=== PATIENT | female | born 1945 | race Caucasian/White ===

== ENCOUNTER 2023-03-08 14:28 | Inpatient (IN) | payer MEDICAID, OTHER ==
[~2023-03-08] VITALS: Ht 167.6 cm; Wt 67.1 kg
[2023-03-08 15:19] LABS: BASOPHILS # (AUTO) 0.2 K/uL (0.0-0.2); BASOPHILS % (AUTO) 1.3 % (0.0-2.0); EOSINOPHILS % (AUTO) 0.2 % (0.0-6.0); HEMATOCRIT 40 % (33-45); HEMOGLOBIN 13.2 g/dL (11.5-14.8); LYMPHOCYTES # (AUTO) 0.7 K/uL (0.8-4.8); LYMPHOCYTES % (AUTO) 5.4 % (20.0-44.0); MEAN CORPUSCULAR HEMOGLOBIN 29 PG (26.0-33.0); MEAN CORPUSCULAR HGB CONC 33 g/dl (31.0-36.0); MEAN CORPUSCULAR VOLUME 86 fL (82-100); MONOCYTES # (AUTO) 0.9 K/uL (0.1-1.30); MONOCYTES % (AUTO) 7.3 % (2.0-12.0); NEUTROPHILS # (AUTO) 10.9 K/uL (1.8-8.9); NEUTROPHILS % (AUTO) 85.8 % (43.0-81.0); PLATELET COUNT (AUTO) 187 K/uL (150-450); RED BLOOD CELL COUNT(AUTO) 4.63 MIL/uL (4.0-5.2); RED CELL DISTRIBUTION WIDTH 13.9 % (11.5-15.0); WHITE BLOOD COUNT (AUTO) 12.7 K/uL (4.3-11.0)
[2023-03-08 15:28] LABS: PARTIAL THROMBOPLASTIN TIME 26.9 SEC (24.3-34.3); PROTHROMBIN TIME 10.6 SECS (9.2-11.1)
[2023-03-08 15:42] LABS: ALANINE AMINOTRANSFERASE 17 U/L (12-78); ALBUMIN 3.2 g/dL (3.4-5.0); ALKALINE PHOSPHATASE 152 U/L (46-116); ASPARTATE AMINOTRANSFERASE 11 U/L (15-37); BILIRUBIN,DIRECT 0.1 mg/dL (0.0-0.2); BILIRUBIN,TOTAL 0.5 mg/dL (0.2-1.0); CALCIUM, SERUM 9.1 mg/dL (8.5-10.1); CARBON DIOXIDE 26 mmol/L (21-32); CHLORIDE 98 mmol/L (98-107); CREATININE 1.2 mg/dL (0.6-1.3); GLUCOSE 232 mg/dL (74-106); SODIUM SERUM 134 mmol/L (136-145); TOTAL PROTEIN, SERUM 7.5 g/dL (6.4-8.2); UREA NITROGEN, BLOOD 18 mg/dL (7-18)
[2023-03-08 15:49] LABS: THYROID STIMULATING HORMONE 0.794 uIU/mL (0.358-3.74)
[2023-03-08] MEDS ORDERED: DONE5TAB34 PO (16:11)
[2023-03-08] MEDS ORDERED: DULA0.75 SQ (16:11)
[2023-03-08] MEDS ORDERED: PRAV20TA4 PO (16:11)
[2023-03-08] MEDS ORDERED: CALC1TAB30 PO (16:11)
[2023-03-08] MEDS ORDERED: HYDR12.55 PO (16:11)
[2023-03-08] MEDS ORDERED: VITA1TAB56 PO (16:11)
[2023-03-08] MEDS ORDERED: METF-440 PO (16:11)
[2023-03-08] MEDS ORDERED: FAMO20TA8 PO (16:11)
[2023-03-08] MEDS ORDERED: ASCO-352 PO (16:11)
[2023-03-08] MEDS ORDERED: OMEP40CA21 PO (16:11)
[2023-03-08] MEDS ORDERED: ACET-868 PO (16:11)
[2023-03-08] MEDS ORDERED: DOCU-141 PO (16:11)
[2023-03-08] MEDS ORDERED: LOSA50TA39 PO (16:11)
[2023-03-08] MEDS ORDERED: GLIM2TAB31 PO (16:11)
[2023-03-08] MEDS ORDERED: ONDA4TAB5 PO (16:11)
[2023-03-08] MEDS ORDERED: FERR325T23 PO (16:11)
[2023-03-08 16:57] LABS: ANISOCYTOSIS 1+; LYMPHOCYTES % (MANUAL) 8 % (16-48); MONOCYTES % (MANUAL) 6 % (0-11.0); NEUTROPHILS % (MANUAL) 85 (42-76); PLATELET ESTIMATE ADEQUATE; REACTIVE LYMPHOCYTES 1 % (0-0)
[2023-03-08] MEDS ORDERED: MAG HYDROX/AL HYDROX/SIMETH 30 ML UDC PO PRN (18:00)
[2023-03-08] MEDS ORDERED: MAGNESIUM HYDROXIDE 30 ML UDC PO PRN (18:00)
[2023-03-08] MEDS ORDERED: ONDANSETRON HCL/PF 4 MG/2 ML VIAL IVP PRN (18:00)
[2023-03-08] MEDS ORDERED: Z GUARD REMEDY 4 OZ OINT TP PRN (18:00)
[2023-03-08] MEDS ORDERED: ZOLPIDEM TARTRATE 5 MG TABLET PO PRN (18:00)
[2023-03-08] MEDS ORDERED: ACETAMINOPHEN 325 MG TABLET ONE (19:13)
[2023-03-08] MEDS: ACETAMINOPHEN 325 MG TABLET PO PRN (19:14)
[2023-03-08 19:46] VITALS: BP 131/56; TEMP 98.6; O2SAT 98
[2023-03-09] VITALS: BP 137/55; TEMP 98.1; O2SAT 99
[2023-03-09 04:00] VITALS: BP 135/51; TEMP 98.1; O2SAT 100
[2023-03-09 05:45] LABS: APPEARANCE,URINE SLIGHTLY CLOUDY (CLEAR); BILIRUBIN,URINE NEGATIVE (NEGATIVE); BLOOD, URINE 1+ Ery/uL (NEGATIVE); COLOR,URINE YELLOW (YELLOW); KETONES,URINE NEGATIVE (NEGATIVE); LEUKOCYTE ESTERASE ,URINE 2+ (NEGATIVE); NITRITE, URINE NEGATIVE (NEGATIVE); PROTEIN,URINE 1+ mg/dl (NEGATIVE); UGLUCOSE NEGATIVE (NEGATIVE); UROBILINOGEN,URINE 0.2 EU/dL (0.2)
[2023-03-09 06:05] LABS: AMPHETAMINE, URINE NEGATIVE (NEGATIVE); BARBITURATE, URINE NEGATIVE (NEGATIVE); BENZODIAZEPINE, URINE NEGATIVE (NEGATIVE); CANNABINOID, URINE NEGATIVE (NEGATIVE); COCCAINE, URINE NEGATIVE (NEGATIVE); PHENCYCLIDINE SCREEN,URINE NEGATIVE (NEGATIVE)
[2023-03-09 06:09] LABS: OPIATE, URINE POSITIVE (NEGATIVE)
[2023-03-09 06:23] LABS: ADD URINE CULTURE YES; BACTERIA,URINE 4+ /HPF (None Seen); MUCUS,URINE Moderate /LPF (None Seen); WBC,URINE 21-50 /HPF (0-3)
[2023-03-09 06:24] LABS: BASOPHILS % (AUTO) 0.2 % (0.0-2.0); HEMATOCRIT 38 % (33-45); HEMOGLOBIN 12.5 g/dL (11.5-14.8); LYMPHOCYTES # (AUTO) 1.7 K/uL (0.8-4.8); LYMPHOCYTES % (AUTO) 12.2 % (20.0-44.0); MEAN CORPUSCULAR HEMOGLOBIN 28 PG (26.0-33.0); MEAN CORPUSCULAR HGB CONC 33 g/dl (31.0-36.0); MEAN CORPUSCULAR VOLUME 86 fL (82-100); MONOCYTES # (AUTO) 1.2 K/uL (0.1-1.30); MONOCYTES % (AUTO) 8.7 % (2.0-12.0); NEUTROPHILS # (AUTO) 11.2 K/uL (1.8-8.9); NEUTROPHILS % (AUTO) 78.9 % (43.0-81.0); PLATELET COUNT (AUTO) 187 K/uL (150-450); RED BLOOD CELL COUNT(AUTO) 4.42 MIL/uL (4.0-5.2); WHITE BLOOD COUNT (AUTO) 14.2 K/uL (4.3-11.0)
[2023-03-09 06:29] LABS: CHOLESTEROL 184 mg/dL (<200); HDL CHOLESTEROL 67 mg/dL (40-60); LDL 102 mg/dL (0-99); TRIGLYCERIDES 85 mg/dL (30-150)
[2023-03-09 06:39] LABS: CALCIUM, SERUM 8.8 mg/dL (8.5-10.1); CARBON DIOXIDE 27 mmol/L (21-32); CHLORIDE 98 mmol/L (98-107); CREATININE 1.3 mg/dL (0.6-1.3); GLUCOSE 169 mg/dL (74-106); MAGNESIUM 1.7 mg/dL (1.8-2.4); PHOSPHORUS 3.6 mg/dL (2.5-4.9); POTASSIUM 3.8 mmol/L (3.5-5.1); SODIUM SERUM 133 mmol/L (136-145); UREA NITROGEN, BLOOD 18 mg/dL (7-18)
[2023-03-09] MEDS ORDERED: MAGNESIUM OXIDE 400 MG TABLET PO ONE (07:30)
[2023-03-09] MEDS ORDERED: DOCUSATE SODIUM 100 MG CAPSULE PO PRN (07:30)
[2023-03-09] MEDS ORDERED: Medication Not On Formulary EA (Dulaglutide (Trulicity) 0.75 MG) SQ SCH (07:30)
[2023-03-09 08:00] VITALS: BP 119/50; TEMP 98.6; O2SAT 100
[2023-03-09] MEDS: LOSARTAN POTASSIUM 50 MG TABLET PO SCH (08:31)
[2023-03-09] MEDS: PANTOPRAZOLE 40 MG VIAL IV SCH (08:32)
[2023-03-09] MEDS: ASCORBIC ACID 500 MG TABLET PO SCH (08:32)
[2023-03-09] MEDS: FERROUS SULFATE (325 MG) 325 MG/TAB TABLET PO SCH (08:32)
[2023-03-09] MEDS: VITAMIN B COMP W-C 1 TAB TABLET PO SCH (08:32)
[2023-03-09] MEDS ORDERED: HYDROCHLOROTHIAZIDE 25 MG TABLET PO SCH (09:00)
[2023-03-09] MEDS: CEFTRIAXONE 1 G in IV D5W 50 ML IV SCH (10:44)
[2023-03-09 12:00] VITALS: BP 100/44; TEMP 98.6; O2SAT 99
[2023-03-09 16:00] VITALS: BP 108/54; TEMP 99.5; O2SAT 100
[2023-03-09 20:00] VITALS: BP 112/45; TEMP 97.7; O2SAT 99
[2023-03-09] MEDS: ATORVASTATIN 10 MG TABLET PO SCH (21:21)
[2023-03-09] MEDS: DONEPEZIL 5 MG TABLET PO SCH (21:21)
[2023-03-10] VITALS: BP 123/56; TEMP 98.3; O2SAT 99
[2023-03-10 04:00] VITALS: BP 113/50; TEMP 98.1; O2SAT 98
[2023-03-10 07:15] LABS: CALCIUM, SERUM 8.6 mg/dL (8.5-10.1); CREATININE 1.3 mg/dL (0.6-1.3); MAGNESIUM 2.1 mg/dL (1.8-2.4); PHOSPHORUS 3.1 mg/dL (2.5-4.9); POTASSIUM 3.8 mmol/L (3.5-5.1)
[2023-03-10 07:22] LABS: THYROID STIMULATING HORMONE 0.911 uIU/mL (0.358-3.74); URIC ACID 5.5 mg/dL (2.6-7.2)
[2023-03-10 08:00] VITALS: BP 116/44; TEMP 98.3; O2SAT 96
[2023-03-10] MEDS: LOSARTAN POTASSIUM 50 MG TABLET PO SCH (08:30)
[2023-03-10] MEDS: ASCORBIC ACID 500 MG TABLET PO SCH (08:30)
[2023-03-10] MEDS: PANTOPRAZOLE 40 MG VIAL IV SCH (08:31)
[2023-03-10] MEDS: VITAMIN B COMP W-C 1 TAB TABLET PO SCH (08:31)
[2023-03-10] MEDS: ACETAMINOPHEN 325 MG TABLET PO PRN ×2 (08:31→21:29)
[2023-03-10] MEDS: FERROUS SULFATE (325 MG) 325 MG/TAB TABLET PO SCH (08:31)
[2023-03-10 09:01] LABS: BASOPHILS % (AUTO) 0.3 % (0.0-2.0); EOSINOPHILS # (AUTO) 0.1 K/uL (0.0-0.7); EOSINOPHILS % (AUTO) 1.1 % (0.0-6.0); HEMATOCRIT 35 % (33-45); HEMOGLOBIN 11.6 g/dL (11.5-14.8); LYMPHOCYTES # (AUTO) 1.9 K/uL (0.8-4.8); LYMPHOCYTES % (AUTO) 18.3 % (20.0-44.0); MEAN CORPUSCULAR HEMOGLOBIN 28 PG (26.0-33.0); MEAN CORPUSCULAR HGB CONC 33 g/dl (31.0-36.0); MEAN CORPUSCULAR VOLUME 86 fL (82-100); MONOCYTES # (AUTO) 0.9 K/uL (0.1-1.30); MONOCYTES % (AUTO) 8.4 % (2.0-12.0); NEUTROPHILS # (AUTO) 7.4 K/uL (1.8-8.9); NEUTROPHILS % (AUTO) 71.9 % (43.0-81.0); PLATELET COUNT (AUTO) 210 K/uL (150-450); RED BLOOD CELL COUNT(AUTO) 4.09 MIL/uL (4.0-5.2); RED CELL DISTRIBUTION WIDTH 13.9 % (11.5-15.0); WHITE BLOOD COUNT (AUTO) 10.3 K/uL (4.3-11.0)
[2023-03-10] MEDS: CEFTRIAXONE 1 G in IV D5W 50 ML IV SCH (10:06)
[2023-03-10] MEDS ORDERED: DEXTROSE 50%-WATER 50 ML DISP.SYRIN IV PRN (15:30)
[2023-03-10 16:00] VITALS: BP 100/41; TEMP 98.2; O2SAT 99
[2023-03-10] MEDS: BLOOD SUGAR DIAGNOSTIC 1 EACH STRIP IN SCH ×2 (17:15→21:28)
[2023-03-10] MEDS: INSULIN REGULAR, HUMAN 100 UNIT/ML 3 ML VIAL SQ PRN ×2 (17:19→21:29)
[2023-03-10 20:00] VITALS: BP 134/49; TEMP 97.7; O2SAT 99
[2023-03-10] MEDS: DONEPEZIL 5 MG TABLET PO SCH (21:08)
[2023-03-10] MEDS: ATORVASTATIN 10 MG TABLET PO SCH (21:08)
[2023-03-11] MEDS: BLOOD SUGAR DIAGNOSTIC 1 EACH STRIP IN SCH ×2 (06:42→11:58)
[2023-03-11] MEDS: INSULIN REGULAR, HUMAN 100 UNIT/ML 3 ML VIAL SQ PRN ×2 (06:44→11:58)
[2023-03-11 07:03] LABS: BASOPHILS % (AUTO) 0.2 % (0.0-2.0); CALCIUM, SERUM 8.8 mg/dL (8.5-10.1); CARBON DIOXIDE 24 mmol/L (21-32); CHLORIDE 101 mmol/L (98-107); CREATININE 1.2 mg/dL (0.6-1.3); EOSINOPHILS # (AUTO) 0.1 K/uL (0.0-0.7); EOSINOPHILS % (AUTO) 1.4 % (0.0-6.0); GLUCOSE 221 mg/dL (74-106); HEMATOCRIT 37 % (33-45); LYMPHOCYTES # (AUTO) 1.4 K/uL (0.8-4.8); LYMPHOCYTES % (AUTO) 18.9 % (20.0-44.0); MEAN CORPUSCULAR HEMOGLOBIN 28 PG (26.0-33.0); MEAN CORPUSCULAR HGB CONC 33 g/dl (31.0-36.0); MEAN CORPUSCULAR VOLUME 86 fL (82-100); MONOCYTES # (AUTO) 0.5 K/uL (0.1-1.30); MONOCYTES % (AUTO) 7.2 % (2.0-12.0); NEUTROPHILS # (AUTO) 5.5 K/uL (1.8-8.9); NEUTROPHILS % (AUTO) 72.3 % (43.0-81.0); PLATELET COUNT (AUTO) 235 K/uL (150-450); POTASSIUM 4.1 mmol/L (3.5-5.1); RED BLOOD CELL COUNT(AUTO) 4.26 MIL/uL (4.0-5.2); SODIUM SERUM 136 mmol/L (136-145); UREA NITROGEN, BLOOD 25 mg/dL (7-18); WHITE BLOOD COUNT (AUTO) 7.6 K/uL (4.3-11.0)
[2023-03-11 07:30] VITALS: BP 129/72; TEMP 97.3; O2SAT 99
[2023-03-11] MEDS ORDERED: PANTOPRAZOLE 40 MG TABLET.DR PO SCH (09:00)
[2023-03-11 09:48] VITALS: BP 129/72
[2023-03-11] MEDS: FERROUS SULFATE (325 MG) 325 MG/TAB TABLET PO SCH (09:48)
[2023-03-11] MEDS: VITAMIN B COMP W-C 1 TAB TABLET PO SCH (09:48)
[2023-03-11] MEDS: ASCORBIC ACID 500 MG TABLET PO SCH (09:48)
[2023-03-11] MEDS: LOSARTAN POTASSIUM 50 MG TABLET PO SCH (09:48)
[2023-03-11] MEDS: CEFTRIAXONE 1 G in IV D5W 50 ML IV SCH (09:49)
[2023-03-11] MEDS ORDERED: SULF1TAB48 PO (09:49)
== END 2023-03-11 14:00 | disposition home or self-care (01) | DRG 463 ==
LOC: ER 14:30 → TELE 17:56 → MED 03-10 10:33
PROVIDERS: ADMIT Nurse Practitioner Acute Care; ATTEND Nurse Practitioner Family
DX: N39.0 Urinary tract infection, site not specified (principal); G92.8 Other toxic encephalopathy; E87.1 Hypo-osmolality and hyponatremia; D72.829 Elevated white blood cell count, unspecified; E11.9 Type 2 diabetes mellitus without complications; E78.5 Hyperlipidemia, unspecified; E83.42 Hypomagnesemia; F03.90 Unspecified dementia, unspecified severity, without behavioral disturbance, psychotic disturbance, mood disturbance, and anxiety; I10 Essential (primary) hypertension; Z79.84 Long term (current) use of oral hypoglycemic drugs; T50.2X5A Adverse effect of carbonic-anhydrase inhibitors, benzothiadiazides and other diuretics, initial encounter; Y92.009 Unspecified place in unspecified non-institutional (private) residence as the place of occurrence of the external cause
CPT/HCPCS: 36415; 70450-TC; 71045-TC; 80048-TC; 80061-TC; 80076-TC; 81001; 82962-TC; 83735-TC; 84100-TC; 84443-TC; 84484-TC; 84550-TC; 85025-TC; 85730-TC; 87086-TC; 97110-TC; 97112-TC; 97116-TC; 97530-TC; 97535-TC; A4223; C9113; G0378; J0696; J1815; J2405; J7050; J7060

== ENCOUNTER 2024-10-17 01:43 | Emergency (ER) | payer MEDICAID, OTHER ==
[~2024-10-17] VITALS: Ht 167.6 cm; Wt 68.0 kg
[~2024-10-17 01:43] MED LIST: ACET-868 PO; ASCO-352 PO; CALC1TAB30 PO; DOCU-141 PO; DONE5TAB34 PO; DULA0.75 SQ; FAMO20TA8 PO; FERR325T23 PO; GLIM2TAB31 PO; HYDR12.55 PO; LOSA50TA39 PO; METF-440 PO; OMEP40CA21 PO; ONDA4TAB5 PO; PRAV20TA4 PO; SULF1TAB48 PO; VITA1TAB56 PO
[2024-10-17 02:12] LABS: BASOPHILS % (AUTO) 0.3 % (0.0-2.0); EOSINOPHILS # (AUTO) 0.1 K/uL (0.0-0.7); HEMATOCRIT 38 % (33-45); HEMOGLOBIN 12.7 g/dL (11.5-14.8); LYMPHOCYTES # (AUTO) 1.3 K/uL (0.8-4.8); LYMPHOCYTES % (AUTO) 14.7 % (20.0-44.0); MEAN CORPUSCULAR HEMOGLOBIN 30 PG (26.0-33.0); MEAN CORPUSCULAR HGB CONC 34 g/dl (31.0-36.0); MEAN CORPUSCULAR VOLUME 90 fL (82-100); MONOCYTES # (AUTO) 0.5 K/uL (0.1-1.30); MONOCYTES % (AUTO) 6.2 % (2.0-12.0); NEUTROPHILS # (AUTO) 6.7 K/uL (1.8-8.9); NEUTROPHILS % (AUTO) 77.8 % (43.0-81.0); PLATELET COUNT (AUTO) 263 K/uL (150-450); RED CELL DISTRIBUTION WIDTH 13.8 % (11.5-15.0); WHITE BLOOD COUNT (AUTO) 8.6 K/uL (4.3-11.0)
[2024-10-17 02:18] LABS: CREATININE 0.9 mg/dL (0.6-1.3); POTASSIUM 3.8 mmol/L (3.5-5.1)
[2024-10-17] MEDS ORDERED: ONDANSETRON HCL/PF 4 MG/2 ML VIAL ONE (02:25)
[2024-10-17] MEDS ORDERED: FAMOTIDINE/PF INJ 20 MG/2 ML VIAL IV ONE (02:26)
[2024-10-17] MEDS: FAMOTIDINE/PF INJ 20 MG/2 ML VIAL IV ONE (02:44)
[2024-10-17] MEDS: IV NS 0.9% 1,000 ML BAG IV ONE (02:44)
[2024-10-17] MEDS: ONDANSETRON HCL/PF 4 MG/2 ML VIAL IV ONE (02:44)
[2024-10-17] MEDS ORDERED: ONDA4TAB5 PO (03:24)
[2024-10-17 03:29] VITALS: BP 132/70; O2SAT 98
== END 2024-10-17 03:43 | disposition home or self-care (01) ==
LOC: ER 01:45
DX: R11.0 Nausea (principal); R42 Dizziness and giddiness; E11.9 Type 2 diabetes mellitus without complications; E78.5 Hyperlipidemia, unspecified; F03.90 Unspecified dementia, unspecified severity, without behavioral disturbance, psychotic disturbance, mood disturbance, and anxiety; I10 Essential (primary) hypertension; Z79.84 Long term (current) use of oral hypoglycemic drugs; Z79.899 Other long term (current) drug therapy; Z86.79 Personal history of other diseases of the circulatory system
CPT/HCPCS: 99284; 96374; 96361; 96375; 93005; 85025; 80048; 36415; 84484; J1308; J2405; J7030